=== PATIENT | male | born 1980 | race African-American/Black ===

== ENCOUNTER 2018-05-28 10:06 | Emergency (ER) | payer MEDICAID ==
[~2018-05-28] VITALS: Ht 172.7 cm; Wt 93.0 kg
[2018-05-28 11:42] LABS: BASOPHILS # (AUTO) 0.04 x10^3/uL (0-0.1); BASOPHILS % (AUTO) 1 % (0-1); EOSINOPHILS % (AUTO) 1 % (1-7); LYMPHOCYTES # (AUTO) 2.85 x10^3/uL (1-3.4); LYMPHOCYTES % (AUTO) 43 % (22-44); MD NO; MEAN CORPUSCULAR HEMOGLOBIN 28.8 pg (27.5-34.5); MEAN CORPUSCULAR HGB CONC 32.7 g/dL (33.2-36.2); MEAN CORPUSCULAR VOLUME 88.2 fL (81-97); MEAN PLATELET VOLUME 7.6 fL (7.4-10.4); MONOCYTES # (AUTO) 0.66 x10^3/uL (0.2-0.8); MONOCYTES % (AUTO) 10 % (2-9); NEUTROPHILS # (AUTO) 3.05 x10^3/uL (1.8-6.8); NEUTROPHILS % (AUTO) 46 % (42-75); PLATELET COUNT 304 x10^3/uL (130-400); RED BLOOD COUNT 5.84 x10^6/uL (4.38-5.82); RED CELL DISTRIBUTION WIDTH 14.5 % (9.4-14.8)
[2018-05-28 11:48] LABS: ANION GAP 5 mmol/L (5-15); CALCIUM 8.6 mg/dL (8.5-10.1); CHLORIDE 105 mmol/L (98-107)
--- NOTE | 2018-05-28 11:49 | NUR ---
FROM LOBBY TO ROOM AT THIS TIME
[2018-05-28 11:51] LABS: ALANINE AMINOTRANSFERASE 29 U/L (12-78); ALKALINE PHOSPHATASE 61 U/L (45-117); BILIRUBIN,TOTAL 0.3 mg/dL (0.2-1.0); CREATININE 0.98 mg/dL (0.7-1.3); TOTAL PROTEIN 8.5 g/dL (6.4-8.2)
--- NOTE | 2018-05-28 11:59 | NUR ---
PT TO ED FOR SORE THROAT X3 DAYS AND OCCASIONAL DRY COUGH. CONNECTED TO MONITORS. VSS. LABS COMPLETED. XR COMPLETED. MD TO BEDSIDE FOR ASSESSMENT. UA COLLECTED AND SENT. AWAITING ORDERS AT THIS TIME.
[2018-05-28 12:04] VITALS: BP 153/83
[2018-05-28 12:15] LABS: MICROSCOPIC AUTO
[2018-05-28 12:20] LABS: CULTURE INDICATED? YES
== END 2018-05-28 12:44 | disposition home or self-care (01) ==
LOC: ED 12:27
DX: B34.9 Viral infection, unspecified (principal); R11.2 Nausea with vomiting, unspecified
CPT/HCPCS: 36415; 71046; 80053; 81001; 83690; 85025; 87086; 99284